=== PATIENT | male | born 1995 | race Two or more races ===

== ENCOUNTER 2025-06-16 20:03 | Emergency (ER) | payer OTHER ==
[~2025-06-16] VITALS: Ht 185.4 cm; Wt 81.6 kg
[2025-06-16] MEDS ORDERED: TRAMADOL HCL 50 MG TABLET PO STA (23:24)
[2025-06-16] MEDS ORDERED: FAMOTIDINE/PF 20 MG/2 ML VIAL IV PUSH STA (23:37)
[2025-06-16] MEDS ORDERED: HYOSCYAMINE SULFATE 0.125 MG TAB.SUBL SL STA (23:41)
[2025-06-16] MEDS ORDERED: HYOSCYAMINE SULFATE 0.125 MG TAB.SUBL ONE (23:50)
[2025-06-16] MEDS ORDERED: FAMOTIDINE/PF 20 MG/2 ML VIAL ONE (23:50)
[2025-06-17 00:14] LABS: BASO % 0.5 % (0.1-1.2); EOS # 0.05 (0.04-0.54); EOS % 0.9 % (0.7-7.0); LYMPH # 2.03 (1.18-3.74); LYMPH % 35.9 % (19.3-53.1); MEAN PLATELET VOLUME 10.80 fl (9.4-12.4); MONO # 0.46 (0.24-0.82); MONO % 8.1 % (4.7-12.5); NEUT # 3.07 (1.56-6.13); NEUT % 54.4 % (34.0-71.1); RED CELL DISTRIBUTION WIDTH 11.9 % (11.6-14.4)
[2025-06-17 00:36] LABS: URINE APPEARANCE Clear; URINE BILIRRUBIN Negative (NEGATIVE); URINE BLOOD Moderate; URINE COLOR Yellow; URINE GLUCOSE Negative (NEGATIVE); URINE LEUKOCYTE Negative; URINE NITRATE Negative; URINE PROTEIN Trace (NEGATIVE); URINE UROBILINOGEN 1.0 E.U./dl
[2025-06-17 00:40] LABS: URINE BACTERIA 7.1 uL (0.0-1933); URINE EPITHELIAL CELLS 2.9 uL (0.0-38.8); URINE RBC 31.8 uL (0.0-20.8); URINE WBC 6.6 uL (0.0-23.2)
[2025-06-17 00:46] LABS: URINE CAST 0.43 uL (0.0-1.40); URINE KETONE 40 (NEGATIVE)
[2025-06-17 00:55] LABS: ALT/SGPT 17.0 U/L (12-78); AST/SGOT 10.0 U/L (15-37); BILIRUBIN TOTAL 2.83 mg/dL (0.3-1.2); BUN CREA RATIO 14.0 (7.0-25.0); CREATININE SERUM 0.87 mg/dL (0.70-1.30); GFR 103.74; GLOBULINA 3.1 G/DL (2.4-3.5); GLUCOSE FASTING 95.0 mg/dL (65-100); OSMOLALITY SERUM 281.0 MOSM/KG (275-295)
== END 2025-06-17 04:21 | disposition home or self-care (01) ==
LOC: ER 20:03
PROVIDERS: General Practice
DX: R10.11 Right upper quadrant pain (principal)